=== PATIENT | male | born 1970 | race Caucasian/White ===

== ENCOUNTER 2023-07-11 08:57 | Day surgery (SDC) | payer BC ==
[2023-07-05 13:16] VITALS: BMI 41.3
[~2023-07-11 08:57] MED LIST: LACTATED RINGERS 1,000 ML IV SCH
[2023-07-11 09:51] LABS: Glucose,Whole Blood 145 mg/dL (70-110)
[2023-07-11 09:52] VITALS: RESP 20; TEMP 97.4
--- NOTE | 2023-07-11 10:28 | P.PCN ---
Date of Procedure: 07/11/23 Procedure(s) Performed: Preoperative diagnosis: 1-papillary edema. 2-pseudotumor cerebri. Post operative diagnoses: Same as preop diagnosis Procedure= lumbar puncture Anesthesia= local infiltration with lidocaine 1% 5 mL. Condition: stable Complication: none. Description of the procedure procedure risk and benefits discussed with the patient, consent signed. Patient and the procedure area placed in lateral position ( right side down ), back prepped with chlorhexidine 3 times been local infiltration of the skin and subcutaneous tissue with lidocaine 1% 5 mL for skin and subcu interstitial frustrations at L4 5 levels then 22-gauge Quincke-type needle advanced slowly at L4- 5 interlaminar space there was positive cerebrospinal fluid which was clear, no heme, no paresthesia ,total of 20 ML of clear cerebrospinal fluid collected in 4 different tubes 5 mL in each, then the needle removed and a Band-Aid applied and patient tolerated the procedure well without any complications. opening pressure= 45 cm of water
[2023-07-11] MEDS ORDERED: ONDANSETRON 4 MG/2 ML VIAL ONE (10:35)
[2023-07-11] MEDS ORDERED: ONDANSETRON ODT 4 MG TAB PO ONE (10:50)
[2023-07-11 11:03] VITALS: BP 117/77; PULSE 69
[2023-07-11 18:34] LABS: Glucose,CSF 104 mg/dL (40-70); Total Protein,CSF 58 mg/dL (12-60)
[2023-07-11 18:53] LABS: Appearance,CSF Clear; CSF Tube Number 3; Nucleated Cells, CSF 1 u/L (0-5); Red Blood Cell,CSF 1 u/L (0-10)
== END 2023-07-11 11:15 | disposition home or self-care (01) ==
LOC: ORPAIN 08:57
PROVIDERS: ATTEND Specialist
DX: G93.2 Benign intracranial hypertension (principal); E11.9 Type 2 diabetes mellitus without complications; I10 Essential (primary) hypertension; Z79.82 Long term (current) use of aspirin
CPT/HCPCS: 62270; 82945; 84157; 87070; 87205; 88108; 89050

== ENCOUNTER 2024-05-19 10:00 | Day surgery (SDC) | payer BC ==
[~2024-05-19 10:00] MED LIST changes: +LACTATED RINGERS 1,000 ML BAG ONE; -LACTATED RINGERS 1,000 ML IV SCH; +PROPOFOL 10 MG/ML 20 ML VIAL IV ONE
--- NOTE | 2024-05-22 15:56 | OP ---
OPERATIVE REPORT DATE OF SERVICE : 05/19/2024 REQUESTING PHYSICIAN: Dr. Aguilar. BRIEF HISTORY: The patient is a 53-year-old pleasant white male scheduled for an upper endoscopy as part of evaluation of longstanding history of GERD and Linares's esophagus. PROCEDURES PERFORMED: EGD with biopsy. PREOPERATIVE DIAGNOSIS: Longstanding history of GERD and Linares's esophagus. ANESTHESIA: IV sedation per Anesthesia. DESCRIPTION OF PROCEDURE: After informed consent was obtained from the patient, he was brought in to the endoscopy unit. IV conscious sedation was administered by anesthesia under continuous monitoring initially. The Olympus CF-180 video endoscope was inserted in the mouth and esophagus intubated without any difficulty and was gradually advanced into the stomach and duodenum was carefully examined. Bulb and the second part of the duodenum appeared normal. The scope was then withdrawn through the stomach adequately insufflated with air and upon careful examination mucosa of the antrum appeared normal. The gastric polyp was noted in the gastric body, which were biopsied. There was significant amount of retained solid food in the stomach suggestive of diabetic gastroparesis. On retroflexion, the cardia and fundus appeared normal. The scope was then withdrawn through the esophagus. The GE junction was located at 40 cm from the incisors. There was a small hiatal hernia noted. There were two islands of Linares's appearing mucosa measuring about 2 to 3 mm in size, both of which were biopsied. Rest of the esophagus appeared normal and the patient tolerated the procedure well. IMPRESSION: 1. Short-segment Linares's esophagus status post biopsy. 2. Small hiatal hernia. 3. Retained food in the stomach suggestive of diabetic gastroparesis. 4. Gastric polyps status post biopsy. RECOMMENDATIONS: Findings of this examination were discussed with the patient as well as his family. He was advised to follow up with the biopsy results. If the biopsy confirms the presence of Linares's esophagus, recommended repeat upper endoscopy in 3 years. In the meantime, he will continue with Prilosec 20 mg daily. Continue with small frequent meals and follow anti-reflux measures. MMODL / IJN: [id number] /
== END 2024-05-19 10:38 ==
LOC: ORWHC2ENDO 10:00
PROVIDERS: ATTEND Internal Medicine Gastroenterology
DX: K31.7 Polyp of stomach and duodenum (principal); K22.70 Barrett's esophagus without dysplasia; K44.9 Diaphragmatic hernia without obstruction or gangrene; K21.9 Gastro-esophageal reflux disease without esophagitis; I25.2 Old myocardial infarction; E78.5 Hyperlipidemia, unspecified; G47.33 Obstructive sleep apnea (adult) (pediatric); I12.9 Hypertensive chronic kidney disease with stage 1 through stage 4 chronic kidney disease, or unspecified chronic kidney disease; E11.22 Type 2 diabetes mellitus with diabetic chronic kidney disease; N18.9 Chronic kidney disease, unspecified; Z95.5 Presence of coronary angioplasty implant and graft; Z79.899 Other long term (current) drug therapy; Z98.890 Other specified postprocedural states; Z79.84 Long term (current) use of oral hypoglycemic drugs
CPT/HCPCS: 43239; 88305